=== PATIENT | female | born 1950 | race African-American/Black ===

== ENCOUNTER 2016-12-30 15:05 | Inpatient (IN) | payer MEDICARE, MEDICAID ==
[2016-12-30 16:32] LABS: Hematocrit 41 % (35-47); Hemoglobin 13.5 g/dl (12.0-16.0); Mean Corpuscular HGB Conc 33 g/dl (31-36); Mean Corpuscular Hemoglobin 29 pg (27-31); Mean Corpuscular Volume 87 fL (80-97); Mean Platelet Volume 8 um3 (7.4-10.4); Red Blood Count 4.71 10^6/ul (4.0-5.4); Red Cell Distribution Width 14 % (10.5-15); White Blood Count 11.6 10^3/ul (3.5-10.8)
[2016-12-30 16:51] LABS: ALT 10 U/L (7-52); AST 19 U/L (13-39); Albumin 4.6 g/dL (3.2-5.2); Alkaline Phosphatase 63 U/L (34-104); Anion Gap 10 mmol/L (2-11); BUN/Creatinine Ratio 22.8 (8-20); Blood Urea Nitrogen 18 mg/dL (6-24); CO2 Carbon Dioxide 26 mmol/L (22-32); Calcium 10.3 mg/dL (8.6-10.3); Chloride 104 mmol/L (101-111); EGFR African American 93.9 (>60); Globulin 3.1 g/dL (2-4); Glucose 94 mg/dL (70-100); Potassium 2.9 mmol/L (3.5-5.0); Sodium 140 mmol/L (133-145); Total Protein 7.7 g/dL (6.4-8.9)
[2016-12-30 17:20] LABS: Acetaminophen < 15 mcg/mL; Alcohol < 10 mg/dL (<10); Salicylate < 2.50 mg/dL (<30)
[2016-12-30 17:30] LABS: TSH (Thyroid Stimulating Horm) 0.24 mcIU/mL (0.34-5.60)
[2016-12-30 18:12] LABS: Urine Bacteria Absent (Absent); Urine Bilirubin Negative (Negative); Urine Glucose Negative (Negative); Urine Nitrite Negative (Negative)
[2016-12-30 18:37] LABS: Benzodiazepine Urine Screen Presumptive Positive (None Detect)
[2016-12-30] MEDS ORDERED: Sulfamethox/Trimethoprim DS 800/160* TAB PO ONE (22:11)
--- NOTE | 2016-12-30 22:13 | ED ---
Francine Aldana Anna, scribed for Ander Hudson MD on 12/30/16 at 1607 . Psychiatric Complaint - HPI Summary HPI Summary: Patient is a 66 y/o female BIBA to [facility] presenting with the sudden onset of intermittent auditory hallucinations that began today. She has OCD at baseline but is having acute symptoms today, different than baseline. In addition to the auditory hallucinations, she reports repeating herself and having memory difficulties. She denies visual hallucinations. She denies thoughts of hurting herself or others. Her history is significant for OCD and scoliosis. - History Of Current Complaint Chief Complaint: EDMentalHealth Time Seen by Provider: 12/30/16 15:28 Hx Obtained From: Patient Onset/Duration: Sudden Onset, Lasting Hours, Still Present - Allergies/Home Medications Allergies/Adverse Reactions: Allergies Allergy/AdvReac Type Severity Reaction Status Date / Time Aspirin AdvReac Nausea Verified 12/14/16 12:54 bee sting Allergy Airway Uncoded 07/09/16 13:26 Obstruction Home Medications: Home Medications Acetaminophen [Acetaminophen Extra Stren] 500 mg PO BID PRN 12/30/16 [History Confirmed 12/30/16] FLUoxetine CAP* [PROzac CAP*] 80 mg PO QAM 12/30/16 [History Confirmed 12/30/16] Levothyroxine TAB* [Synthroid TAB*] 50 mcg PO DAILY 12/30/16 [History Confirmed 12/30/16] Lisinopril TAB* [Prinivil TAB*] 10 mg PO QPM 12/30/16 [History Confirmed ] Lisinopril TAB* [Prinivil TAB*] 20 mg PO QAM 12/30/16 [History Confirmed ] Multivitamins/Minerals TAB* [Theragran/minerals TAB*] 1 tab PO DAILY 12/30/16 [ History Confirmed 12/30/16] Nabumetone TAB* [Relafen TAB*] 1,500 mg PO BID PRN 12/30/16 [History Confirmed 12/30/16] Oxycodone HCl [Oxycontin] 15 - 22.5 mg PO QID PRN MDD 90 mg 12/30/16 [History Confirmed 12/30/16] chlordiazePOXIDE CAP* [Librium CAP*] 10 mg PO TID MDD 30 mg 12/30/16 [History Confirmed 12/30/16] PMH/Surg Hx/FS Hx/Imm Hx Endocrine/Hematology History: Denies: Hx Anticoagulant Therapy, Hx Diabetes, Hx Thyroid Disease Cardiovascular History: Reports: Hx Hypercholesterolemia - HLD, Hx Hypertension Denies: Hx Congestive Heart Failure, Hx Pacemaker/ICD Respiratory History: Reports: Hx Asthma Denies: Hx Chronic Obstructive Pulmonary Disease (COPD) History: Denies: Hx Renal Disease Musculoskeletal History: Reports: Hx Arthritis, Hx Back Problems, Hx Congenital Bone Abnormalities, Hx Osteoporosis, Hx Scoliosis, Other Musculoskeletal History - OSTEOARTHRITIS,SCOLIOSIS Sensory History: Reports: Hx Contacts or Glasses Opthamlomology History: Reports: Hx Contacts or Glasses Neurological History: Reports: Other Neuro Impairments/Disorders - PAIN CLINIC PT Denies: Hx Dementia, Hx Seizures Psychiatric History: Reports: Hx Anxiety, Hx Depression, Hx Inpatient Treatment , Hx Community Mental Health Tx, Hx Suicide Attempt - SI/ATTEMPT HX, Other Psychiatric Issues/Disorders - OCD Denies: Hx Eating Disorder, Hx of Violent Episodes Against Others, Hx Substance Abuse - Cancer History Cancer Type, Location and Year: scoliosis, back pain - Surgical History Surgery Procedure, Year, and Place: bunionectomy, hammer toe - Immunization History Date of Tetanus Vaccine: unknown Infectious Disease History: No Infectious Disease History: Denies: Hx Hepatitis, Hx Human Immunodeficiency Virus (HIV), Traveled Outside the [place] in Last 30 Days - Family History Known Family History: Positive: Cardiac Disease, Diabetes, Other - Depression, EtOH abuse - Social History Alcohol Use: None Substance Use Type: Reports: None Substance Use Comment - Amount & Last Used: mSIR, oxycodone Smoking Status (MU): Former Smoker Type: Cigarettes Length of Time of Smoking/Using Tobacco: on and off since age 26 Have You Smoked in the Last Year: Yes Review of Systems Neurological: Other - "memory difficulties" Psychological: Other - auditory hallucinations, repeating herself All Other Systems Reviewed And Are Negative: Yes Physical Exam Triage Information Reviewed: Yes Vital Signs On Initial Exam: Initial Vitals Temp Pulse Resp BP Pulse Ox 98.0 F 82 16 144/97 100 12/30/16 15:05 12/30/16 15:05 12/30/16 15:05 12/30/16 15:05 12/30/16 15:05 Vital Signs Reviewed: Yes Appearance: Positive: Well-Appearing, No Pain Distress Skin: Positive: Warm, Skin Color Reflects Adequate Perfusion, Dry Head/Face: Positive: Normal Head/Face Inspection Eyes: Positive: EOMI, GIANFRANCO ENT: Positive: Normal ENT inspection Neck: Positive: Supple, Nontender Respiratory/Lung Sounds: Positive: Clear to Auscultation, Breath Sounds Present Cardiovascular: Positive: RRR Abdomen Description: Positive: Nontender, Soft Bowel Sounds: Positive: Present Musculoskeletal: Positive: Normal, Strength/ROM Intact Neurological: Positive: Normal, Sensory/Motor Intact, Alert, Oriented to Person Place, Time Psychiatric: Positive: Affect/Mood Appropriate Diagnostics - Vital Signs Vital Signs Temp Pulse Resp BP Pulse Ox 12/30/16 15:05 98.0 F 82 16 144/97 100 - Laboratory Lab Results: Lab Results 12/30/16 12/30/16 12/30/16 Range/Units 16:22 16:22 17:53 WBC 11.6 H (3.5-10.8) 10^3/ul RBC 4.71 (4.0-5.4) 10^6/ul Hgb 13.5 (12.0-16.0) g/dl Hct 41 (35-47) % MCV 87 (80-97) fL MCH 29 (27-31) pg MCHC 33 (31-36) g/dl RDW 14 (10.5-15) % Plt Count 230 (150-450) 10^3/ul MPV 8 (7.4-10.4) um3 Neut % (Auto) 70.7 (38-83) % Lymph % (Auto) 20.8 L (25-47) % Meeker % (Auto) 7.4 (1-9) % Eos % (Auto) 0.3 (0-6) % Baso % (Auto) 0.8 (0-2) % Absolute Neuts (auto) 8.2 H (1.5-7.7) 10^3/ul Absolute Lymphs (auto) 2.4 (1.0-4.8) 10^3/ul Absolute Monos (auto) 0.9 H (0-0.8) 10^3/ul Absolute Eos (auto) 0 (0-0.6) 10^3/ul Absolute Basos (auto) 0.1 (0-0.2) 10^3/ul Absolute Nucleated RBC 0.01 10^3/ul Nucleated RBC % 0.1 Sodium 140 (133-145) mmol/L Potassium 2.9 L (3.5-5.0) mmol/L Chloride 104 (101-111) mmol/L Carbon Dioxide 26 (22-32) mmol/L Anion Gap 10 (2-11) mmol/L BUN 18 (6-24) mg/dL Creatinine 0.79 (0.51-0.95) mg/dL Est GFR ( Amer) 93.9 (>60) Est GFR (Non-Af Amer) 73.0 (>60) BUN/Creatinine Ratio 22.8 H (8-20) Glucose 94 (70-100) mg/dL Calcium 10.3 (8.6-10.3) mg/dL Total Bilirubin 0.60 (0.2-1.0) mg/dL AST 19 (13-39) U/L ALT 10 (7-52) U/L Alkaline Phosphatase 63 (34-104) U/L Total Protein 7.7 (6.4-8.9) g/dL Albumin 4.6 (3.2-5.2) g/dL Globulin 3.1 (2-4) g/dL Albumin/Globulin Ratio 1.5 (1-3) TSH 0.24 L (0.34-5.60) mcIU/mL Urine Color Shell Urine Appearance Cloudy Urine pH 5.0 (5-9) Ur Specific Yolo 1.030 (1.010-1.030) Urine Protein 2+(100 mg/dl) H (Negative) Urine Ketones Trace H (Negative) Urine Blood Negative (Negative) Urine Nitrate Negative (Negative) Urine Bilirubin Negative (Negative) Urine Urobilinogen Negative (Negative) Ur Leukocyte Esterase Trace H (Negative) Urine WBC (Auto) 2+(11-20/hpf) H (Absent) Urine RBC (Auto) 1+(3-5/hpf) H (Absent) Ur Squamous Epith Cells Present H (Absent) Urine Bacteria Absent (Absent) Hyaline Casts Present H (Absent) Urine Glucose Negative (Negative) Salicylates < 2.50 (<30) mg/dL Urine Opiates Screen (None Detect) Acetaminophen < 15 mcg/mL Ur Barbiturates Screen (None Detect) Ur Phencyclidine Scrn (None Detect) Ur Amphetamines Screen (None Detect) U Benzodiazepines Scrn (None Detect) Urine Cocaine Screen (None Detect) U Cannabinoids Screen (None Detect) Serum Alcohol < 10 (<10) mg/dL 12/30/16 Range/Units 17:53 WBC (3.5-10.8) 10^3/ul RBC (4.0-5.4) 10^6/ul Hgb (12.0-16.0) g/dl Hct (35-47) % MCV (80-97) fL MCH (27-31) pg MCHC (31-36) g/dl RDW (10.5-15) % Plt Count (150-450) 10^3/ul MPV (7.4-10.4) um3 Neut % (Auto) (38-83) % Lymph % (Auto) (25-47) % Meeker % (Auto) (1-9) % Eos % (Auto) (0-6) % Baso % (Auto) (0-2) % Absolute Neuts (auto) (1.5-7.7) 10^3/ul Absolute Lymphs (auto) (1.0-4.8) 10^3/ul Absolute Monos (auto) (0-0.8) 10^3/ul Absolute Eos (auto) (0-0.6) 10^3/ul Absolute Basos (auto) (0-0.2) 10^3/ul Absolute Nucleated RBC 10^3/ul Nucleated RBC % Sodium (133-145) mmol/L Potassium (3.5-5.0) mmol/L Chloride (101-111) mmol/L Carbon Dioxide (22-32) mmol/L Anion Gap (2-11) mmol/L BUN (6-24) mg/dL Creatinine (0.51-0.95) mg/dL Est GFR ( Amer) (>60) Est GFR (Non-Af Amer) (>60) BUN/Creatinine Ratio (8-20) Glucose (70-100) mg/dL Calcium (8.6-10.3) mg/dL Total Bilirubin (0.2-1.0) mg/dL AST (13-39) U/L ALT (7-52) U/L Alkaline Phosphatase (34-104) U/L Total Protein (6.4-8.9) g/dL Albumin (3.2-5.2) g/dL Globulin (2-4) g/dL Albumin/Globulin Ratio (1-3) TSH (0.34-5.60) mcIU/mL Urine Color Urine Appearance Urine pH (5-9) Ur Specific Yolo (1.010-1.030) Urine Protein (Negative) Urine Ketones (Negative) Urine Blood (Negative) Urine Nitrate (Negative) Urine Bilirubin (Negative) Urine Urobilinogen (Negative) Ur Leukocyte Esterase (Negative) Urine WBC (Auto) (Absent) Urine RBC (Auto) (Absent) Ur Squamous Epith Cells (Absent) Urine Bacteria (Absent) Hyaline Casts (Absent) Urine Glucose (Negative) Salicylates (<30) mg/dL Urine Opiates Screen Presumptive positive H (None Detect) Acetaminophen mcg/mL Ur Barbiturates Screen None detected (None Detect) Ur Phencyclidine Scrn None detected (None Detect) Ur Amphetamines Screen None detected (None Detect) U Benzodiazepines Scrn Presumptive positive H (None Detect) Urine Cocaine Screen None detected (None Detect) U Cannabinoids Screen None detected (None Detect) Serum Alcohol (<10) mg/dL Result Diagrams: 12/30/16 16:22 12/30/16 16:22 Lab Statement: Any lab studies that have been ordered have been reviewed, and results considered in the medical decision making process. Course/Dx - Course Course Of Treatment: Pt is medically cleared for MHU Evaluation at 1740. NO CRITICAL CARE TIME Assessment/Plan: MHE PENDING AT SHIFT CHANGE, STABLE. - Differential Dx/Clinical Impression Provider Diagnosis: Mental health problem, UTI (urinary tract infection) Discharge - Discharge Plan Condition: Stable Disposition: PSYCHIATRIC FACILITY-[facility] [place] Referrals: Sheng Musa MD [Primary Care Provider] - The documentation as recorded by the Francine lopez Anna accurately reflects the service I personally performed and the decisions made by me, Ander Hudson MD.
[2016-12-30] MEDS ORDERED: Loperamide CAP* 2 MG PO ONE (23:32)
[2016-12-31] MEDS ORDERED: Morphine TAB Extended Release (*) 30 MG TAB.ER PO ONE ×2 (05:46→07:30)
[2016-12-31] MEDS ORDERED: Promethazine TAB* 25 MG PO ONE (05:47)
[2016-12-31] MEDS ORDERED: Levothyroxine TAB* 25 MCG TAB PO ONE (05:48)
[2016-12-31] MEDS ORDERED: FLUoxetine CAP* 20 MG PO ONE (05:48)
[2016-12-31] MEDS ORDERED: chlordiazePOXIDE CAP* 10 MG PO ONE (05:48)
[2016-12-31] MEDS ORDERED: busPIRone TAB* 5 MG PO ONE (05:49)
[2016-12-31] MEDS ORDERED: Docusate CAP* 100 MG PO ONE (05:49)
[2016-12-31] MEDS ORDERED: Lisinopril TAB* 10 MG PO ONE (05:50)
[2016-12-31] MEDS ORDERED: Nabumetone TAB* 500 MG PO ONE (05:50)
[2016-12-31] MEDS ORDERED: Promethazine TAB* 25 MG PO PRN (16:47)
[2016-12-31] MEDS: busPIRone TAB* 10 MG PO SCH (21:01)
[2016-12-31] MEDS: Nabumetone TAB* 500 MG PO PRN (21:01)
[2017-01-01] MEDS: Levothyroxine TAB* 50 MCG TAB PO SCH (08:59)
[2017-01-01] MEDS: Vitamin THERAPEUTIC TAB PO SCH (08:59)
[2017-01-01] MEDS: Lisinopril TAB* 10 MG PO SCH (09:00)
[2017-01-01] MEDS: busPIRone TAB* 10 MG PO SCH (09:00)
[2017-01-01] MEDS: Omeprazole CAP* 20 MG PO SCH (09:01)
[2017-01-01] MEDS: Docusate CAP* 100 MG PO SCH (09:01)
[2017-01-01] MEDS: FLUoxetine CAP* 20 MG PO SCH (09:01)
--- NOTE | 2017-01-01 15:25 | HP ---
AMENDED REPORT NOW INCLUDES CO-SIGNER DESIGNATION - ESIGNED BEFORE ADJUSTMENT INITIAL PSYCHIATRIC ASSESSMENT: DATE OF ADMISSION: 12/31/16 SUPERVISING/ATTENDING PSYCHIATRIST: Dr. Alon Redding.* (DICTATED BY YOHANA DURAN) IDENTIFYING INFORMATION: The patient is a 66-year-old female admitted to this facility on 12/31/16, admitting status was involuntary. The patient was seen and examined. The chart was reviewed and the case was discussed with clinical staff available at the time of the visit. CHIEF COMPLAINT/REASON FOR ADMISSION: The patient states "I am going to stay here until I ." HISTORY OF PRESENT ILLNESS: The patient was apparently brought in by ambulance to [facility] Emergency Department with a sudden onset of intermittent auditory hallucinations which apparently began on the . During today's clinical interview, the patient is informing me that she hears both male and female voices whom she believes are collectively part of a coven of witches to which she adds "they took my and now they want my son" at which point, she began to cry historically followed by laughter. When I attempted to explore the history of the onset of symptoms, she stated "it began rather quickly but I thought I was going to have to bring myself here last week. " She states that there is a wizard who has a perfect IQ and he is in charge of the coven of witches. She states "he has got a bag of tricks and he is going to use them." She then proceeded to tell me about her sister, who has multiple sclerosis, whom Minerva believes was given multiple sclerosis by this coven. At several points throughout the clinical interview, she would abruptly stop what she was saying, look at me, and state "do you really believe me?" The clinical interview was difficult to engage the patient with as she was highly distractible, again many of her answers centered on witchcraft and when I attempted to engage her in the review of systems, she simply kept stating "no , I don't have it now, but it is going to come." For a rather comprehensive review of this patient's past psychiatric history, I would direct to the reader to the history and physical documented on 04/22/[address] Efrain Garcia. PAST MEDICAL HISTORY: Includes scoliosis, hypercholesterolemia, hypertension, chronic back pain, obesity, and there is mention in the clinical record of a concussion at the age of 16. SUBSTANCE USE HISTORY: The patient is a former smoker, she did struggle with alcohol addiction many years ago; however, has been sober x26 years. She denies any other illicit substance use or abuse at this time. PAST PSYCHIATRIC HISTORY: When I attempted to ask the patient about past psychiatric history, she stated "they know it, they know it all." I am able to determine, however, from chart review that the patient was recently admitted here in April of 2016. She has also apparently been involved with Alcoholics Anonymous. She had apparently been in the past attending approximately 4 times a week. It is unclear at this point as to whether not she is still involved with AA. There is also mention in the clinical record of previous admission to [facility] in 1990 following drug overdose as well as admission to a dual diagnosis program in [place], [place]. REVIEW OF SYSTEMS: At this point, each systems that I had asked the patient about was one with the same answer which was "no, but it is going to come." Therefore, I am unable to accurately complete the review of systems at this time with this client. PHYSICAL EXAMINATION GENERAL APPEARANCE: The patient is well-developed, well-nourished, alert, and cooperative. She began crying several times during the clinical interview. HEENT: Head is normocephalic, atraumatic. NECK: Appears normal on inspection. RESPIRATORY: No respiratory distress. Lungs were clear. CARDIAC: Rate is 80. Blood pressure 144/92. ABDOMEN: Symmetrical without distention. MUSCULOSKELETAL: The patient does have scoliosis. She ambulates with the assistance of a walker and is noticed to be hunched in a forward position. NEUROLOGICAL: The patient is alert and oriented to person, place, and time. SKIN: Intact, warm, and dry. MENTAL STATUS EXAM: The patient appears older than her stated age with somewhat disheveled grooming noted. She is wearing brown what appeared to be sweat pants with an orange blouse. On gross examination, the patient's anterior scoliosis is quite apparent necessitating the use of a walker to navigate safely. Her attitude toward the examiner was quite pleasant and cooperative. She did not appear to be demonstrating any noteworthy mannerisms, gestures, or tics. Activity level was increased throughout the clinical interview as the patient got up from the rocking chair, leaned on the bureau in the comfort room, and then came and sat on the couch next to me. Her speech was verbose, somewhat goal-directed, spontaneous. Self- reported mood is "it comes and it goes." Affect is labile. Auditory hallucinations as described above. Paranoid and delusional thought processes were quite apparent as were impaired judgment and insight. Concentration and attention were also grossly impaired. The patient is denying suicidal ideation at this time. LABORATORY DATA: Review of laboratory data undertaken at this time, the following abnormals are noted: The white blood cell count was elevated at 11.6 , lymphocyte percentage is low at 20.8, absolute neutrophils are elevated at 8.2 , absolute monos are elevated at 0.9. Chemistry studies demonstrated a low potassium of 2.9, a BUN/creatinine ratio of 22.8, a TSH was 0.24. Her urine screen was positive for 2+ protein, trace ketones, trace leuko esterases, white blood cells were 2+, and urine red blood cells 1+, urine squamous epithelial cells were present as were hyaline casts. Urine toxicology was presumptively positive for opiates. CLINICAL IMPRESSION: The patient is a 66-year-old woman who is admitted under involuntary status secondary to new onset of psychotic symptoms. She is preoccupied religiously and is convinced that a coven of witches headed by a wizard are attempting to kill her. A UTI has been suspected and results for a urine C&S are currently pending. Her psychosis is such she is unable to care for herself safely in the community and has been admitted at this time for stabilization of symptoms. ADMITTING DIAGNOSES: 1. Psychosis, not otherwise specified. 2. History of atypical depression. 3. Histrionic personality disorder. 4. Hypercholesterolemia. 5. Hypertension. 6. Chronic pain. PLAN OF TREATMENT: Admit to Behavioral Services Unit. Diet will be regular. Activity as tolerated with restrictions to the unit. Vital signs per unit protocol. At this time, I will obtain lipid panel. At this time we will replace potasssium (40 meq orally q-4-hours/ x 2 doses) with repeat BMP in the am. The patient will participate in treatment planning activities, individual, group, and milieu therapy as well as medication management sessions and discharge planning until she is stable or referred to a higher level of care. TREATMENT GOAL: Stabilization. PROGNOSIS: Fair. ESTIMATED LENGTH OF STAY: 7 to 10 days. DISCHARGE CRITERIA: The patient will be discharged when she is no longer a risk to herself or others and has met the criteria set forth by the treatment team for discharge. The case was reviewed and discussed with Dr. Redding, who concurred with assessment, clinical impression, and initial plan of treatment. TARYN AVILA, COUNTERPERSON [id number]/[facility] #: [id number] KRISTEN
[2017-01-01] MEDS: busPIRone TAB* 15 MG PO SCH (21:45)
[2017-01-01] MEDS: Potassium Chlor TAB* 20 MEQ TAB.ER PO SCH (21:45)
[2017-01-02] MEDS: Potassium Chlor TAB* 20 MEQ TAB.ER PO SCH (02:20)
[2017-01-02] MEDS: Omeprazole CAP* 20 MG PO SCH (09:21)
[2017-01-02] MEDS: Lisinopril TAB* 10 MG PO SCH (09:21)
[2017-01-02] MEDS: FLUoxetine CAP* 20 MG PO SCH (09:21)
[2017-01-02] MEDS: busPIRone TAB* 15 MG PO SCH ×2 (09:21→20:00)
[2017-01-02] MEDS: Levothyroxine TAB* 50 MCG TAB PO SCH (09:21)
[2017-01-02] MEDS: Vitamin THERAPEUTIC TAB PO SCH (09:21)
[2017-01-02] MEDS: Docusate CAP* 100 MG PO SCH (09:23)
[2017-01-02] MEDS ORDERED: hydrOXYzine HCL TAB* 25 MG PO ONE (20:00)
[2017-01-03] MEDS: Levothyroxine TAB* 50 MCG TAB PO SCH (06:45)
[2017-01-03 07:36] LABS: HDL Cholesterol 47.4 mg/dL
[2017-01-03 07:39] LABS: Calcium 9.6 mg/dL (8.6-10.3); Potassium 3.6 mmol/L (3.5-5.0)
[2017-01-03] MEDS: Omeprazole CAP* 20 MG PO SCH (08:11)
[2017-01-03] MEDS: busPIRone TAB* 15 MG PO SCH ×2 (08:11→20:43)
[2017-01-03] MEDS: Vitamin THERAPEUTIC TAB PO SCH (08:12)
[2017-01-03] MEDS: FLUoxetine CAP* 20 MG PO SCH (08:12)
[2017-01-03] MEDS: Docusate CAP* 100 MG PO SCH (08:12)
[2017-01-03] MEDS: Lisinopril TAB* 10 MG PO SCH (08:12)
--- NOTE | 2017-01-03 12:26 | PN ---
Subjective - Subjective Service Type: 93580 Hosp care 25 min moderate complexity Subjective: Kirti has a hard time initiating an idea or following through on it. She endorses hallucination of a relative's voice and feels persecuted and as if her family is in danger. She affirmed she has no ideas of harming anyone. She reports being homeless and at the same time wants help "getting home."' I tried to review her prior antipsychotic treatment experiences, or get her input on selection, but she changed the subject. She did assent to Seroquel use. Objective - Appearance Appearance: Well Developed/Nourished Dysmorphic Features: No Hygiene: Normal Grooming: Fairly Well Kept - Behavior Psychomotor Activities: Abnormal-Decreased - stooped posture Exhibits Abnormal Movement: Yes - Attitude and Relatedness Attitude and Relatedness: Psychotically Related Eye Contact: Poor - Speech Quality: Unpressured Latencies: Long Quantity: Appropriate - Mood Patient's Decription of Mood: "Anxious" - Affect Observed Affect: Labile Affect Consistent with: Euthymia - Thought Process Patient's Thought Process: Disorganized, Impoverished - blocked Thought Content: Yes Paranoid Ideation, No Passive Wish, No Suicidal Planning, No Homicidal Ideation - Sensorium Experiencing Hallucinations: Yes - "Voice" of a relative Type of Hallucinations: Visual: No, Auditory: Yes, Command: No - Level of Consciousness Level of Consciousness: Alert - Impulse Control Impulse Control: Intact - Insight and Judgement Insight and Judgement: Impaired Assessment - Assessment Merits Inpatient Hospitalization: For Immediate Safety, For Stabilization, To Initiate Treatment, For Ongoing Evaluation, Pending Safe DC Plan Inpatient DSM-IV Dx: Psychotic disorder. PTSD Clinical Impression: 66 y/o female with history of multiple prior psychiatric hospitalizations, trauma, suicidal behavior, mood and anxiety condition, substance use disorder(s) , hystrionic traits/personality d/o, previous perceptual disturbances ("voices" ) and antipsychotic use. She was admitted due to concern over apparent impairing psychosis. She continues symptomatic and impaired with psychotic symptoms: thought disorder, hallucinations, delusions. She may also have dissociative features. She is safe on checks, free of suicidal or violent ideation. Medication management continues her outpatient regimen and starts Seroquel for psychosis. Plan - Plan Treatment Plan: Name: KIRTI JARA Birthdate: 1950 [id number] Continued Medication Management: Start Medication Medications: Current Medications Acetaminophen (Tylenol Tab*) 650 mg PO Q4H PRN PRN Reason: for pain; or Temp >101 F Al Hydrox/Mg Hydrox/Simethicone (Maalox Plus*) 30 ml PO Q4H PRN PRN Reason: INDIGESTION Buspirone HCl (Buspar Tab *) 30 mg PO BID [facility] Last Admin: 01/03/17 08:11 Dose: 30 mg Docusate Sodium (Colace Cap*) 100 mg PO DAILY [facility] Last Admin: 01/03/17 08:12 Dose: 100 mg Fluoxetine HCl (Prozac Cap*) 80 mg PO DAILY [facility] Last Admin: 01/03/17 08:12 Dose: 80 mg Levothyroxine Sodium (Synthroid Tab*) 50 mcg PO DAILY@0600 [facility] Last Admin: 01/03/17 06:45 Dose: 50 mcg Lisinopril (Prinivil Tab*) 20 mg PO DAILY [facility] Last Admin: 01/03/17 08:12 Dose: 20 mg Multivitamins (Theragran Tab*) 1 tab PO DAILY [facility] Last Admin: 01/03/17 08:12 Dose: 1 tab Nabumetone (Relafen Tab*) 1,500 mg PO BID PRN PRN Reason: PAIN Last Admin: 12/31/16 21:01 Dose: 1,500 mg Omeprazole (Prilosec Cap*) 20 mg PO 0600 [facility] Last Admin: 01/03/17 08:11 Dose: 20 mg Promethazine HCl (Phenergan Tab*) 25 mg PO Q8H PRN PRN Reason: NAUSEA - Discharge Plan Discharge Plan: Outpatient Follow Up
[2017-01-03] MEDS ORDERED: QUEtiapine TAB* 100 MG PO SCH (21:00)
[2017-01-04 09:10] LABS: BUN/Creatinine Ratio 13.9 (8-20); Calcium 9.4 mg/dL (8.6-10.3); EGFR African American 104.5 (>60); EGFR Non-African American 81.3 (>60); Potassium 3.2 mmol/L (3.5-5.0)
[2017-01-04] MEDS: Vitamin THERAPEUTIC TAB PO SCH (09:18)
[2017-01-04] MEDS: Omeprazole CAP* 20 MG PO SCH (09:18)
[2017-01-04] MEDS: busPIRone TAB* 15 MG PO SCH ×2 (09:18→20:54)
[2017-01-04] MEDS: FLUoxetine CAP* 20 MG PO SCH (09:18)
[2017-01-04] MEDS: Lisinopril TAB* 10 MG PO SCH (09:19)
[2017-01-04] MEDS: Docusate CAP* 100 MG PO SCH (09:22)
[2017-01-04] MEDS: Levothyroxine TAB* 50 MCG TAB PO SCH (09:22)
[2017-01-04 09:40] LABS: TSH (Thyroid Stimulating Horm) 0.35 mcIU/mL (0.34-5.60)
[2017-01-04 09:44] LABS: Free T3 3.2 pg/mL (2.5-3.9)
[2017-01-04 09:46] LABS: Free T4 1.27 ng/dL (0.61-1.12)
--- NOTE | 2017-01-04 15:43 | PN ---
Subjective - Subjective Service Type: 33854 Hosp care 25 min moderate complexity Subjective: Kirti reviewed with me her beliefs about being chosen by Greg to oppose inequity. She reports that she continues to struggle internally with the coven that she believes has already taken family members from her and is threatening her. Offered to her the possibility that these beliefs are internally generated by her own brain, to which she remains resistant. She agrees to take a more effective antipsychotic medication, olanzapine, but says she thinks the leader of the coven will 'freeze it.' She reports that she believes the coven is causing her scoliosis, enlarging her breasts to worsen it, and trying to shrink her. She reports that Greg will take her into heaven and make her an marleni when her contreras with the inequity of the coven is over. Objective - Appearance Appearance: Well Developed/Nourished Dysmorphic Features: Yes Hygiene: Normal Grooming: Disheveled - Behavior Psychomotor Activities: Normal Exhibits Abnormal Movement: No - Attitude and Relatedness Attitude and Relatedness: Cooperative Eye Contact: Poor - Speech Quality: Pressured Latencies: Normal Quantity: Copious - Mood Patient's Decription of Mood: "It's going to end with them" - Affect Observed Affect: Expansive Affect Consistent with: Dysphoria - Thought Process Patient's Thought Process: Disorganized, Tangential Thought Content: Yes Paranoid Ideation, No Passive Wish, No Suicidal Planning, No Homicidal Ideation - Sensorium Type of Hallucinations: Visual: Yes - reported as in her head, Auditory: Yes, Command: No - Level of Consciousness Level of Consciousness: Alert Orientation: Yes Intact, Yes Orientated to Time, Yes Orientated to Place, Yes Orientated to Person - Impulse Control Impulse Control: Intact - Insight and Judgement Insight and Judgement: Impaired - Group Participation Particating in Group Activities: No - Medication Management Medication Management Adherence: Yes Assessment - Assessment Merits Inpatient Hospitalization: For Immediate Safety, For Stabilization, For Ongoing Evaluation, For Discharge Planning, Pending Safe DC Plan Inpatient DSM-IV Dx: Psychotic disorder. PTSD Clinical Impression: Kirti Jara is a 66-year-old woman admitted for concern raised by florid psychosis with sabianist themes. 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 She had agreed to start Seroquel against psychosis, but with me agrees to Zyprexa, which has a higher likelihood of efficacy against psychosis. Plan - Plan Treatment Plan: Name: KIRTI JARA Birthdate: 1950 [id number] Replace Seroquel 100 mg HS with Zyprexa ODT 10 mg HS. Monitor MS and safety. Not yet ready for groups that require focus, but encourage milieu and recreation therapy. Refusing collateral from son, but will keep trying. Continued Medication Management: Different Medication Medications: Current Medications Acetaminophen (Tylenol Tab*) 650 mg PO Q4H PRN PRN Reason: for pain; or Temp >101 F Al Hydrox/Mg Hydrox/Simethicone (Maalox Plus*) 30 ml PO Q4H PRN PRN Reason: INDIGESTION Buspirone HCl (Buspar Tab *) 30 mg PO BID [facility] Last Admin: 01/04/17 09:18 Dose: 30 mg Docusate Sodium (Colace Cap*) 100 mg PO DAILY [facility] Last Admin: 01/04/17 09:22 Dose: 100 mg Fluoxetine HCl (Prozac Cap*) 80 mg PO DAILY [facility] Last Admin: 01/04/17 09:18 Dose: 80 mg Levothyroxine Sodium (Synthroid Tab*) 50 mcg PO DAILY@0600 [facility] Last Admin: 01/04/17 09:22 Dose: 50 mcg Lisinopril (Prinivil Tab*) 20 mg PO DAILY [facility] Last Admin: 01/04/17 09:19 Dose: 20 mg Multivitamins (Theragran Tab*) 1 tab PO DAILY [facility] Last Admin: 01/04/17 09:18 Dose: 1 tab Nabumetone (Relafen Tab*) 1,500 mg PO BID PRN PRN Reason: PAIN Last Admin: 12/31/16 21:01 Dose: 1,500 mg Omeprazole (Prilosec Cap*) 20 mg PO 0600 [facility] Last Admin: 01/04/17 09:18 Dose: 20 mg Promethazine HCl (Phenergan Tab*) 25 mg PO Q8H PRN PRN Reason: NAUSEA Last Admin: 01/03/17 20:45 Dose: 25 mg Quetiapine Fumarate (Seroquel Tab*) 100 mg PO BEDTIME [facility] Last Admin: 01/03/17 20:43 Dose: 100 mg - Discharge Plan Discharge Plan: Outpatient Follow Up
[2017-01-04] MEDS: OLANzapine TAB*ODT* 10 MG TAB PO SCH (20:54)
[2017-01-05] MEDS: Acetaminophen TAB* 325 MG PO PRN (01:14)
[2017-01-05] MEDS: Nabumetone TAB* 500 MG PO PRN ×2 (01:14→20:11)
[2017-01-05] MEDS: Levothyroxine TAB* 50 MCG TAB PO SCH (06:11)
[2017-01-05] MEDS: Omeprazole CAP* 20 MG PO SCH (06:11)
[2017-01-05] MEDS: Docusate CAP* 100 MG PO SCH (08:43)
[2017-01-05] MEDS: busPIRone TAB* 15 MG PO SCH ×2 (08:44→20:11)
[2017-01-05] MEDS: FLUoxetine CAP* 20 MG PO SCH (08:44)
[2017-01-05] MEDS: Lisinopril TAB* 10 MG PO SCH ×2 (08:45→18:13)
[2017-01-05] MEDS: Vitamin THERAPEUTIC TAB PO SCH (08:45)
--- NOTE | 2017-01-05 11:49 | PN ---
Subjective - Subjective Service Type: 75624 Hosp care 15 min low complexity Subjective: Kirti remains pleasantly psychotic today, with report of continued delusions as regard to jainism themes and a coven of witches. She reports very good mood attributed to her antipsychotic medication, which was changed to Zyprexa last evening. She reports some long-standing difficulties with urinary retention, but states she urinates at least twice daily. She says 'it's going to shut down totally,' similar to reports of other maladies due to the coven. She does complain of elevated BP readings, and has had systolic into the low 150 's over the past few days, but also normotensive readings. Per Ms Pizarro (for full details see her note): Pt reports continued paranoia that her accounts are frozen and refused to believe Ms Pizarro that per Willie they are not frozen. 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 * Pt believes that she is an alien who was sent here and that various higher lopez communicate with her * Pt voiced that she was told by Greg that she would be with her before the rapture came * Pt states that she was told by God to write a book and she hand wrote it and lost it * Pt says that she can't use electronics (tv, radio etc) in her apt because "they control them", gesturing to the sir around her head * Pt does not believe that her funds aren't frozen, nor does she think mortals can help solve the problem * Pt stated she "wishes I would already, I want to be with my ". Pt's son Willie says her current presentation is the worst he's ever seen from her. Williereported that her rent and housing are not an issue. Willie lives in [place], but has spoken to his mother on the phone and endorses concern about her ability to care for herself. He often pays out of pocket her expenses. Willie also endorsed that in the past when he has observed decompensation from pt she clears quickly with medication and is able to re-stabilize. Objective - Appearance Appearance: Well Developed/Nourished Dysmorphic Features: Yes Hygiene: Normal Grooming: Disheveled - Behavior Psychomotor Activities: Normal Exhibits Abnormal Movement: No - Attitude and Relatedness Attitude and Relatedness: Psychotically Related Eye Contact: Poor - Speech Quality: Unpressured Latencies: Normal Quantity: Appropriate - Mood Patient's Decription of Mood: "Very good." - Affect Observed Affect: Constricted Affect Consistent with: Euthymia - Thought Process Patient's Thought Process: Disorganized Thought Content: Yes Paranoid Ideation, No Passive Wish, No Suicidal Planning, No Homicidal Ideation - Sensorium Experiencing Hallucinations: Yes Type of Hallucinations: Visual: Yes, Auditory: Yes, Command: No - Level of Consciousness Level of Consciousness: Alert Orientation: Yes Intact, Yes Orientated to Time, Yes Orientated to Place, Yes Orientated to Person - Impulse Control Impulse Control: Intact - Insight and Judgement Insight and Judgement: Impaired - Group Participation Particating in Group Activities: No - Medication Management Medication Management Adherence: Yes Assessment - Assessment Merits Inpatient Hospitalization: For Immediate Safety, For Stabilization, For Discharge Planning, Pending Safe DC Plan Inpatient DSM-IV Dx: Psychotic disorder. PTSD Clinical Impression: Kirti Jraa is a 66-year-old woman admitted for concern raised by florid psychosis with jainism themes. 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 She had agreed to start Seroquel against psychosis, but with me agrees to Zyprexa, which has a higher likelihood of efficacy against psychosis. 5.3.17 Kirti reports some improvement with starting 10 mg Zyprexa, but with little change yet in delusions, paranoia and hallucinations versus confused imaginings. I spoke with Dr Hart about her BP readings and c/o urinary retention. I have ordered a bladder scan for post void residual. Dr Hart increased her lisinopril dose. Kirti remains too impaired to contemplate a safe discharge yet. Plan - Plan Treatment Plan: Name: KIRTI JARA Birthdate: 1950 [id number] Continue Zyprexa ODT 10 mg HS. Monitor MS and safety, also physical complaints re BP, urinary retention. Not yet ready for groups that require focus, but encourage milieu and recreation therapy. Has allowed collateral from son Sheng: Ms Pizarro's note from yesterday gives details. Medications: Current Medications Acetaminophen (Tylenol Tab*) 650 mg PO Q4H PRN PRN Reason: for pain; or Temp >101 F Last Admin: 01/05/17 01:14 Dose: 650 mg Al Hydrox/Mg Hydrox/Simethicone (Maalox Plus*) 30 ml PO Q4H PRN PRN Reason: INDIGESTION Buspirone HCl (Buspar Tab *) 30 mg PO BID [facility] Last Admin: 01/05/17 08:44 Dose: 30 mg Docusate Sodium (Colace Cap*) 100 mg PO DAILY [facility] Last Admin: 01/05/17 08:43 Dose: 100 mg Fluoxetine HCl (Prozac Cap*) 80 mg PO DAILY [facility] Last Admin: 01/05/17 08:44 Dose: 80 mg Levothyroxine Sodium (Synthroid Tab*) 50 mcg PO DAILY@0600 [facility] Last Admin: 01/05/17 06:11 Dose: 50 mcg Lisinopril (Prinivil Tab*) 20 mg PO DAILY [facility] Last Admin: 01/05/17 08:45 Dose: 20 mg Multivitamins (Theragran Tab*) 1 tab PO DAILY [facility] Last Admin: 01/05/17 08:45 Dose: 1 tab Nabumetone (Relafen Tab*) 1,500 mg PO BID PRN PRN Reason: PAIN Last Admin: 01/05/17 01:14 Dose: 1,500 mg Olanzapine (Zyprexa *Odt*) 10 mg PO BEDTIME [facility] Last Admin: 01/04/17 20:54 Dose: 10 mg Omeprazole (Prilosec Cap*) 20 mg PO 0600 [facility] Last Admin: 01/05/17 06:11 Dose: 20 mg Promethazine HCl (Phenergan Tab*) 25 mg PO Q8H PRN PRN Reason: NAUSEA Last Admin: 01/03/17 20:45 Dose: 25 mg - Discharge Plan Discharge Plan: Outpatient Follow Up
[2017-01-05] MEDS: OLANzapine TAB*ODT* 10 MG TAB PO SCH (20:12)
[2017-01-06] MEDS: Levothyroxine TAB* 50 MCG TAB PO SCH (06:10)
[2017-01-06] MEDS: Omeprazole CAP* 20 MG PO SCH (06:10)
[2017-01-06] MEDS: busPIRone TAB* 15 MG PO SCH ×2 (09:44→20:33)
[2017-01-06] MEDS: Vitamin THERAPEUTIC TAB PO SCH (09:44)
[2017-01-06] MEDS: Lisinopril TAB* 10 MG PO SCH ×2 (09:44→18:04)
[2017-01-06] MEDS: Docusate CAP* 100 MG PO SCH (09:44)
[2017-01-06] MEDS: FLUoxetine CAP* 20 MG PO SCH (09:44)
--- NOTE | 2017-01-06 13:31 | PN ---
[facility]: Group Therapy Note - Service Type Service Type: [id number] Group Psychotherapy - Cognitive Behavioral Group Therapy ( CBT):Patient presented in CBT programming as disorganized and disruptive in discussion and needed repeated redirection to attend to presented materials.
--- NOTE | 2017-01-06 15:34 | PN ---
Subjective - Subjective Service Type: 33201 Hosp care 15 min low complexity Subjective: Kirti had various comments centering around getting released - first demanding release, then "by Tuesday" then "at least by the end of the month!!!!" She endorsed anger at us, making persecutory statement to the effect that doctors, judges, and staff all profit from her excessive retention here. She denied major problems with Zyprexa, but could not stay focused on it long enough to really show she understood what she's taking it for. She repeatedly, vigorously, affirmed she is "not psychotic" but refused to answer questions as to previously endorsed delusions and hallucination saying: it's all happening, but I'm not talking about it!!" I set limits around her yelling across the table at me. When I informed her I thought she has made progress but still has symptoms she told me to "shut up" and walked off. Objective - Appearance Appearance: Well Developed/Nourished Hygiene: Normal Grooming: Disheveled - Behavior Psychomotor Activities: Abnormal-Increased - stooped posture Exhibits Abnormal Movement: Yes - Attitude and Relatedness Attitude and Relatedness: Hostile Eye Contact: Poor - Speech Quality: Pressured Latencies: Short Quantity: Appropriate - Mood Patient's Decription of Mood: "Angry" - Affect Observed Affect: Expansive Affect Consistent with: Dysphoria - Thought Process Patient's Thought Process: Disorganized Thought Content: Yes Paranoid Ideation, No Passive Wish, No Suicidal Planning, No Homicidal Ideation - Level of Consciousness Level of Consciousness: Agitated - Impulse Control Impulse Control: Tenuous - Insight and Judgement Insight and Judgement: Poor Assessment - Assessment Merits Inpatient Hospitalization: For Immediate Safety, For Stabilization, To Initiate Treatment, For Ongoing Evaluation, For Discharge Planning Inpatient DSM-IV Dx: Psychotic disorder. PTSD Clinical Impression: 66 y/o female with history of multiple prior psychiatric hospitalizations, trauma, suicidal behavior, mood and anxiety condition, substance use disorder(s) , hystrionic traits/personality d/o, previous perceptual disturbances ("voices" ) and antipsychotic use. She was admitted due to concern over apparent impairing psychosis. 1. Symptoms/behavior: Continues symptomatic and impaired with psychotic symptoms, off baseline: has thought disorder, responses to internal stimuli, recent hallucinations, delusional ideation. Is safe on checks, intrusive but not violent. She has some morbid thinking but is free of suicidal or violent ideation. 2. Medication management: continued her outpatient regimen and provides Zyprexa (2 doses so far) for psychosis. 3. Medical mgt.- hospitalist was informally consulted and assisted with Lisinopril dosing and mgt. of urinary retention. 4. Disposition - still impaired and unable to meet own needs outside the hospital. Plan - Plan Treatment Plan: Name: KIRTI JARA Birthdate: 1950 [id number] Continued Medication Management: Start Medication Medications: Current Medications Acetaminophen (Tylenol Tab*) 650 mg PO Q4H PRN PRN Reason: for pain; or Temp >101 F Last Admin: 01/05/17 01:14 Dose: 650 mg Al Hydrox/Mg Hydrox/Simethicone (Maalox Plus*) 30 ml PO Q4H PRN PRN Reason: INDIGESTION Buspirone HCl (Buspar Tab *) 30 mg PO BID [facility] Last Admin: 01/06/17 09:44 Dose: 30 mg Docusate Sodium (Colace Cap*) 100 mg PO DAILY [facility] Last Admin: 01/06/17 09:44 Dose: 100 mg Fluoxetine HCl (Prozac Cap*) 80 mg PO DAILY [facility] Last Admin: 01/06/17 09:44 Dose: 80 mg Levothyroxine Sodium (Synthroid Tab*) 50 mcg PO DAILY@0600 [facility] Last Admin: 01/06/17 06:10 Dose: 50 mcg Lisinopril (Prinivil Tab*) 20 mg PO DAILY [facility] Last Admin: 01/06/17 09:44 Dose: 20 mg Lisinopril (Prinivil Tab*) 10 mg PO QPM [facility] Last Admin: 01/05/17 18:13 Dose: 10 mg Multivitamins (Theragran Tab*) 1 tab PO DAILY [facility] Last Admin: 01/06/17 09:44 Dose: 1 tab Nabumetone (Relafen Tab*) 1,500 mg PO BID PRN PRN Reason: PAIN Last Admin: 01/05/17 20:11 Dose: 1,500 mg Olanzapine (Zyprexa *Odt*) 10 mg PO BEDTIME [facility] Last Admin: 01/05/17 20:12 Dose: 10 mg Omeprazole (Prilosec Cap*) 20 mg PO 0600 [facility] Last Admin: 01/06/17 06:10 Dose: 20 mg Promethazine HCl (Phenergan Tab*) 25 mg PO Q8H PRN PRN Reason: NAUSEA Last Admin: 01/03/17 20:45 Dose: 25 mg - Discharge Plan Discharge Plan: Outpatient Follow Up
[2017-01-06] MEDS: OLANzapine TAB*ODT* 10 MG TAB PO SCH (20:34)
[2017-01-07] MEDS: Levothyroxine TAB* 50 MCG TAB PO SCH (06:53)
[2017-01-07] MEDS: Omeprazole CAP* 20 MG PO SCH (06:53)
[2017-01-07] MEDS: busPIRone TAB* 15 MG PO SCH ×2 (08:09→20:16)
[2017-01-07] MEDS: Docusate CAP* 100 MG PO SCH (08:09)
[2017-01-07] MEDS: Lisinopril TAB* 10 MG PO SCH ×2 (08:09→20:16)
[2017-01-07] MEDS: Vitamin THERAPEUTIC TAB PO SCH (08:10)
[2017-01-07] MEDS: FLUoxetine CAP* 20 MG PO SCH (08:10)
--- NOTE | 2017-01-07 14:03 | PN ---
Subjective - Subjective Service Type: 50884 Hosp care 15 min low complexity Subjective: Kirti forgave herself for being "wired" yesterday. She was working on the Bible, taking notes. She talked about multiple things, hard to follow, including having "$800" for something. She asked for more medicine "to help with sleep" - I let her know Zyprexa probably would, and she was happy for an increase. Objective - Appearance Appearance: Well Developed/Nourished Hygiene: Normal Grooming: Fairly Well Kept - Behavior Psychomotor Activities: Abnormal-Increased - Attitude and Relatedness Attitude and Relatedness: Psychotically Related Eye Contact: Good - Speech Quality: Pressured Latencies: Short Quantity: Appropriate - Mood Patient's Decription of Mood: "Great" - Affect Observed Affect: Expansive Affect Consistent with: Euthymia - Thought Process Patient's Thought Process: Disorganized Thought Content: No Passive Wish, No Suicidal Planning, No Homicidal Ideation, No Paranoid Ideation - Sensorium Experiencing Hallucinations: No, Sensorium is Clear - Level of Consciousness Level of Consciousness: Alert - Impulse Control Impulse Control: Intact - Insight and Judgement Insight and Judgement: Poor Assessment - Assessment Merits Inpatient Hospitalization: For Immediate Safety, For Stabilization, To Initiate Treatment, For Ongoing Evaluation Inpatient DSM-IV Dx: Psychotic disorder. PTSD Clinical Impression: 66 y/o female with history of multiple prior psychiatric hospitalizations, trauma, suicidal behavior, mood and anxiety condition, substance use disorder(s) , hystrionic traits/personality d/o, previous perceptual disturbances ("voices" ) and antipsychotic use. She was admitted due to concern over apparent impairing psychosis. 1. Symptoms/behavior: Continues symptomatic and impaired with psychotic symptoms, off baseline: has thought disorder, recent responses to internal stimuli and hallucinations, delusional ideation. Has manic affective features - religiosity, note-taking, pressure, little sleep. Is safe on checks, intrusive but not violent. She has some morbid thinking but is free of suicidal or violent ideation. 2. Medication management: continued her outpatient regimen and provides Zyprexa for psychosis, mood. 3. Medical mgt.- hospitalist was informally consulted and assisted with Lisinopril dosing and mgt. of urinary retention - recommended a post void scan which showed very low residual (reassuring) - I discussed case with Dr. Marroquin : recommends routinely following up TSH next week, no intervention for bladder - and he adjusted antihypertensive. 4. Disposition - still impaired and unable to meet own needs outside the hospital. Plan - Plan Treatment Plan: Name: KIRTI JARA Birthdate: 1950 [id number] Continued Medication Management: Start Medication Medications: Current Medications Acetaminophen (Tylenol Tab*) 650 mg PO Q4H PRN PRN Reason: for pain; or Temp >101 F Last Admin: 01/05/17 01:14 Dose: 650 mg Al Hydrox/Mg Hydrox/Simethicone (Maalox Plus*) 30 ml PO Q4H PRN PRN Reason: INDIGESTION Buspirone HCl (Buspar Tab *) 30 mg PO BID [facility] Last Admin: 01/07/17 08:09 Dose: 30 mg Docusate Sodium (Colace Cap*) 100 mg PO DAILY [facility] Last Admin: 01/07/17 08:09 Dose: 100 mg Fluoxetine HCl (Prozac Cap*) 80 mg PO DAILY [facility] Last Admin: 01/07/17 08:10 Dose: 80 mg Levothyroxine Sodium (Synthroid Tab*) 50 mcg PO DAILY@0600 [facility] Last Admin: 01/07/17 06:53 Dose: 50 mcg Lisinopril (Prinivil Tab*) 20 mg PO DAILY [facility] Last Admin: 01/07/17 08:09 Dose: 20 mg Lisinopril (Prinivil Tab*) 10 mg PO QPM [facility] Last Admin: 01/06/17 18:04 Dose: 10 mg Multivitamins (Theragran Tab*) 1 tab PO DAILY [facility] Last Admin: 01/07/17 08:10 Dose: 1 tab Nabumetone (Relafen Tab*) 1,000 mg PO BID PRN PRN Reason: PAIN Olanzapine (Zyprexa *Odt*) 10 mg PO BEDTIME [facility] Last Admin: 01/06/17 20:34 Dose: 10 mg Omeprazole (Prilosec Cap*) 20 mg PO 0600 [facility] Last Admin: 01/07/17 06:53 Dose: 20 mg Promethazine HCl (Phenergan Tab*) 25 mg PO Q8H PRN PRN Reason: NAUSEA Last Admin: 01/03/17 20:45 Dose: 25 mg - Discharge Plan Discharge Plan: Outpatient Follow Up
[2017-01-07 14:34] LABS: Urine Bacteria Absent (Absent); Urine Bilirubin Negative (Negative); Urine Glucose Negative (Negative); Urine Nitrite Negative (Negative)
[2017-01-07] MEDS: Al Hydrox/Mg Hydrox/Simet LIQ* 30 ML UDC PO PRN (20:16)
[2017-01-07] MEDS: OLANzapine TAB*ODT* 5 MG PO SCH (20:16)
[2017-01-07] MEDS: Acetaminophen TAB* 325 MG PO PRN (21:35)
[2017-01-08] MEDS: Nabumetone TAB* 500 MG PO PRN (01:45)
[2017-01-08] MEDS: Omeprazole CAP* 20 MG PO SCH (06:00)
[2017-01-08] MEDS: Levothyroxine TAB* 50 MCG TAB PO SCH (06:00)
[2017-01-08] MEDS: Docusate CAP* 100 MG PO SCH (09:20)
[2017-01-08] MEDS: Lisinopril TAB* 10 MG PO SCH ×2 (09:20→21:25)
[2017-01-08] MEDS: FLUoxetine CAP* 20 MG PO SCH (09:21)
[2017-01-08] MEDS: Vitamin THERAPEUTIC TAB PO SCH (09:21)
[2017-01-08] MEDS: busPIRone TAB* 15 MG PO SCH ×2 (09:21→21:25)
[2017-01-08] MEDS: Acetaminophen TAB* 325 MG PO PRN (09:28)
[2017-01-08] MEDS: OLANzapine TAB*ODT* 5 MG PO SCH (21:25)
[2017-01-08] MEDS: Al Hydrox/Mg Hydrox/Simet LIQ* 30 ML UDC PO PRN (23:42)
[2017-01-09] MEDS: Levothyroxine TAB* 50 MCG TAB PO SCH (06:28)
[2017-01-09] MEDS: Omeprazole CAP* 20 MG PO SCH (06:28)
[2017-01-09] MEDS: Lisinopril TAB* 10 MG PO SCH ×2 (08:50→20:52)
[2017-01-09] MEDS: Vitamin THERAPEUTIC TAB PO SCH (08:50)
[2017-01-09] MEDS: FLUoxetine CAP* 20 MG PO SCH (08:50)
[2017-01-09] MEDS: Docusate CAP* 100 MG PO SCH (08:51)
[2017-01-09] MEDS: busPIRone TAB* 15 MG PO SCH ×2 (08:51→20:52)
[2017-01-09] MEDS: Acetaminophen TAB* 325 MG PO PRN ×2 (08:54→12:55)
[2017-01-09] MEDS: Al Hydrox/Mg Hydrox/Simet LIQ* 30 ML UDC PO PRN (16:12)
[2017-01-09] MEDS: OLANzapine TAB*ODT* 5 MG PO SCH (20:52)
[2017-01-10] MEDS: Levothyroxine TAB* 50 MCG TAB PO SCH (06:14)
[2017-01-10] MEDS: Omeprazole CAP* 20 MG PO SCH (06:14)
[2017-01-10] MEDS: FLUoxetine CAP* 20 MG PO SCH (07:51)
[2017-01-10] MEDS: Docusate CAP* 100 MG PO SCH (07:52)
[2017-01-10] MEDS: Lisinopril TAB* 10 MG PO SCH ×2 (07:52→20:37)
[2017-01-10] MEDS: busPIRone TAB* 15 MG PO SCH ×2 (07:52→20:33)
[2017-01-10] MEDS: Vitamin THERAPEUTIC TAB PO SCH (07:52)
--- NOTE | 2017-01-10 11:59 | PN ---
Subjective - Subjective Service Type: 39680 Hosp care 15 min low complexity Subjective: Kirti says she is doing "great" - really likes Zyprexa and denies side effects. She said she had a sudden realization this weekend that she needed to be hospitalized and "it was a long time coming." She remains focused on discharge and denied symptoms of concern, but did reasonable accept tentative idea of staying her about 4 more days. She denied hallucinations, made no delusional comments, and denied paranoid ideas, persecution. Objective - Appearance Appearance: Well Developed/Nourished Hygiene: Normal Grooming: Fairly Well Kept - Behavior Psychomotor Activities: Abnormal-Increased - Attitude and Relatedness Attitude and Relatedness: Superficially Cooperative Eye Contact: Good - Speech Quality: Unpressured Latencies: Short Quantity: Appropriate - Mood Patient's Decription of Mood: "Great" - Affect Observed Affect: Expansive Affect Consistent with: Euphoria - Thought Process Patient's Thought Process: Over Inclusive Thought Content: No Passive Wish, No Suicidal Planning, No Homicidal Ideation, No Paranoid Ideation - Sensorium Experiencing Hallucinations: No, Sensorium is Clear - Level of Consciousness Level of Consciousness: Alert - Impulse Control Impulse Control: Intact - Insight and Judgement Insight and Judgement: Poor Assessment - Assessment Merits Inpatient Hospitalization: For Stabilization, To Initiate Treatment, For Ongoing Evaluation, Consolidate Improvements, For Discharge Planning Inpatient DSM-IV Dx: Psychotic disorder. PTSD Clinical Impression: 66 y/o female with history of multiple prior psychiatric hospitalizations, trauma, suicidal behavior, mood and anxiety condition, substance use disorder(s) , hystrionic traits/personality d/o, previous perceptual disturbances ("voices" ) and antipsychotic use. She was admitted due to concern over apparent impairing psychosis. Stabilizing here, overall improving. 1. Symptoms/behavior: Is improving. Has had correction of psychotic symptoms. Concern centered on thought disorder, responses to internal stimuli and hallucinations, delusional ideation. She has milder manic affective features - religiosity, note-taking, pressure, little sleep. She is safe on checks. She had some morbid thinking but has been free of suicidal or violent ideation. 2. Medication management: continued her outpatient regimen and provided Zyprexa for psychosis, mood. 3. Medical mgt.- hospitalist was informally consulted and assisted with Lisinopril dosing and mgt. of urinary retention - recommended a post void scan which showed very low residual (reassuring) - I discussed case with Dr. Marroquin : recommends routinely following up TSH week of 01/10, no intervention for bladder - and he adjusted antihypertensive. 4. Disposition - improving but still impaired and unable to meet own needs outside the hospital. Plan - Plan Treatment Plan: Name: KIRTI JARA Birthdate: 1950 [id number] Continued Medication Management: Start Medication Medications: Current Medications Acetaminophen (Tylenol Tab*) 650 mg PO Q4H PRN PRN Reason: for pain; or Temp >101 F Last Admin: 01/09/17 12:55 Dose: 650 mg Al Hydrox/Mg Hydrox/Simethicone (Maalox Plus*) 30 ml PO Q4H PRN PRN Reason: INDIGESTION Last Admin: 01/09/17 16:12 Dose: 30 ml Buspirone HCl (Buspar Tab *) 30 mg PO BID [facility] Last Admin: 01/10/17 07:52 Dose: 30 mg Docusate Sodium (Colace Cap*) 100 mg PO DAILY [facility] Last Admin: 01/10/17 07:52 Dose: 100 mg Fluoxetine HCl (Prozac Cap*) 80 mg PO DAILY [facility] Last Admin: 01/10/17 07:51 Dose: 80 mg Levothyroxine Sodium (Synthroid Tab*) 50 mcg PO DAILY@0600 [facility] Last Admin: 01/10/17 06:14 Dose: 50 mcg Lisinopril (Prinivil Tab*) 20 mg PO BID [facility] Last Admin: 01/10/17 07:52 Dose: 20 mg Multivitamins (Theragran Tab*) 1 tab PO DAILY [facility] Last Admin: 01/10/17 07:52 Dose: 1 tab Nabumetone (Relafen Tab*) 1,000 mg PO BID PRN PRN Reason: PAIN Last Admin: 01/08/17 01:45 Dose: 1,000 mg Olanzapine (Zyprexa * Tab Odt) 15 mg PO BEDTIME [facility] Last Admin: 01/09/17 20:52 Dose: 15 mg Omeprazole (Prilosec Cap*) 20 mg PO 0600 [facility] Last Admin: 01/10/17 06:14 Dose: 20 mg Promethazine HCl (Phenergan Tab*) 25 mg PO Q8H PRN PRN Reason: NAUSEA Last Admin: 01/03/17 20:45 Dose: 25 mg - Discharge Plan Discharge Plan: Outpatient Follow Up
[2017-01-10] MEDS: OLANzapine TAB*ODT* 5 MG PO SCH (20:37)
[2017-01-11] MEDS: Levothyroxine TAB* 50 MCG TAB PO SCH (05:43)
[2017-01-11] MEDS: Omeprazole CAP* 20 MG PO SCH (05:43)
[2017-01-11] MEDS: FLUoxetine CAP* 20 MG PO SCH (08:33)
[2017-01-11] MEDS: Docusate CAP* 100 MG PO SCH (08:33)
[2017-01-11] MEDS: Lisinopril TAB* 10 MG PO SCH ×2 (08:33→21:10)
[2017-01-11] MEDS: Vitamin THERAPEUTIC TAB PO SCH (08:34)
[2017-01-11] MEDS: busPIRone TAB* 15 MG PO SCH ×2 (08:34→21:10)
--- NOTE | 2017-01-11 17:10 | PN ---
Progress Note - Progress Note Note: RN called that pt's SBP's had been elevated. Pt had been asymptomatic otherwise. Will add Norvasc 5 mg to pt's medications and continue Lisinopril
[2017-01-11] MEDS: amLODIPine TAB* 5 MG PO SCH (18:29)
[2017-01-11] MEDS: OLANzapine TAB*ODT* 5 MG PO SCH (21:10)
[2017-01-12] MEDS: Levothyroxine TAB* 50 MCG TAB PO SCH (05:41)
[2017-01-12] MEDS: Omeprazole CAP* 20 MG PO SCH (05:41)
[2017-01-12] MEDS: Acetaminophen TAB* 325 MG PO PRN ×2 (07:31→21:38)
[2017-01-12] MEDS: Vitamin THERAPEUTIC TAB PO SCH (08:43)
[2017-01-12] MEDS: amLODIPine TAB* 5 MG PO SCH (08:43)
[2017-01-12] MEDS: Lisinopril TAB* 10 MG PO SCH ×2 (08:43→20:52)
[2017-01-12] MEDS: busPIRone TAB* 15 MG PO SCH ×2 (08:43→20:52)
[2017-01-12] MEDS: Docusate CAP* 100 MG PO SCH (08:44)
[2017-01-12] MEDS: FLUoxetine CAP* 20 MG PO SCH (08:44)
--- NOTE | 2017-01-12 16:36 | PN ---
Subjective - Subjective Service Type: 61273 Hosp care 15 min low complexity Subjective: Kirti reports sustained remission of delusional thoughts or hallucinations. She says she feels she will be ready for discharge Tuesday. She is concerned that she opened up to a patient here who has been manic and intrusive. She reports that her mind has been very active at night around things she has to get in order at home, so she feels physically but not mentally rested from sleep. Objective - Appearance Appearance: Well Developed/Nourished Dysmorphic Features: Yes Hygiene: Normal Grooming: Well Kept - Behavior Psychomotor Activities: Normal Exhibits Abnormal Movement: No - Attitude and Relatedness Attitude and Relatedness: Well Related Eye Contact: Good - Speech Quality: Unpressured Latencies: Normal Quantity: Appropriate - Mood Patient's Decription of Mood: "I'm happy" - Affect Observed Affect: Good Affect Consistent with: Euthymia - Thought Process Patient's Thought Process: Coherent, Goal Directed Thought Content: No Passive Wish, No Suicidal Planning, No Homicidal Ideation, No Paranoid Ideation - Sensorium Experiencing Hallucinations: No, Sensorium is Clear Type of Hallucinations: Visual: No, Auditory: No, Command: No - Level of Consciousness Level of Consciousness: Alert Orientation: Yes Intact, Yes Orientated to Time, Yes Orientated to Place, Yes Orientated to Person - Impulse Control Impulse Control: Intact - Insight and Judgement Insight and Judgement: Fair - Group Participation Particating in Group Activities: Yes - Medication Management Medication Management Adherence: Yes Assessment - Assessment Merits Inpatient Hospitalization: For Stabilization, Consolidate Improvements, For Discharge Planning Inpatient DSM-IV Dx: Psychotic disorder. PTSD Clinical Impression: Kirti Jara is a 66-year-old woman admitted for concern raised by florid psychosis with rastafari themes. 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 She had agreed to start Seroquel against psychosis, but with me agrees to Zyprexa, which has a higher likelihood of efficacy against psychosis. 5.3.17 Kirti reports some improvement with starting 10 mg Zyprexa, but with little change yet in delusions, paranoia and hallucinations versus confused imaginings. I spoke with Dr Hart about her BP readings and c/o urinary retention. I have ordered a bladder scan for post void residual. Dr Hart increased her lisinopril dose. Kirti remains too impaired to contemplate a safe discharge yet. 01.12.17 Kirti reports sustained remission of psychosis. She continues to have elevated BP into the 160s/90s range: Dr Hart added Norvasc 5 mg daily to her lisinopril. She says she feels she will be ready for discharge on Tuesday. Plan - Plan Treatment Plan: Name: KIRTI JARA Birthdate: 1950 [id number] Continue Zyprexa ODT 15 mg HS. Monitor MS and safety, also BP. Not yet ready for groups that require focus, but encourage milieu and recreation therapy. Possible discharge in next few days. Medications: Current Medications Acetaminophen (Tylenol Tab*) 650 mg PO Q4H PRN PRN Reason: for pain; or Temp >101 F Last Admin: 01/12/17 07:31 Dose: 650 mg Al Hydrox/Mg Hydrox/Simethicone (Maalox Plus*) 30 ml PO Q4H PRN PRN Reason: INDIGESTION Last Admin: 01/09/17 16:12 Dose: 30 ml Amlodipine Besylate (Norvasc Tab*) 5 mg PO DAILY [facility] Last Admin: 01/12/17 08:43 Dose: 5 mg Buspirone HCl (Buspar Tab *) 30 mg PO BID [facility] Last Admin: 01/12/17 08:43 Dose: 30 mg Docusate Sodium (Colace Cap*) 100 mg PO DAILY [facility] Last Admin: 01/12/17 08:44 Dose: 100 mg Fluoxetine HCl (Prozac Cap*) 80 mg PO DAILY [facility] Last Admin: 01/12/17 08:44 Dose: 80 mg Levothyroxine Sodium (Synthroid Tab*) 50 mcg PO DAILY@0600 [facility] Last Admin: 01/12/17 05:41 Dose: 50 mcg Lisinopril (Prinivil Tab*) 20 mg PO BID [facility] Last Admin: 01/12/17 08:43 Dose: 20 mg Multivitamins (Theragran Tab*) 1 tab PO DAILY [facility] Last Admin: 01/12/17 08:43 Dose: 1 tab Nabumetone (Relafen Tab*) 1,000 mg PO BID PRN PRN Reason: PAIN Last Admin: 01/08/17 01:45 Dose: 1,000 mg Olanzapine (Zyprexa * Tab Odt) 15 mg PO BEDTIME [facility] Last Admin: 01/11/17 21:10 Dose: 15 mg Omeprazole (Prilosec Cap*) 20 mg PO 0600 [facility] Last Admin: 01/12/17 05:41 Dose: 20 mg Promethazine HCl (Phenergan Tab*) 25 mg PO Q8H PRN PRN Reason: NAUSEA Last Admin: 01/03/17 20:45 Dose: 25 mg - Discharge Plan Discharge Plan: Outpatient Follow Up
[2017-01-12] MEDS: OLANzapine TAB*ODT* 5 MG PO SCH (20:52)
[2017-01-13] MEDS: Omeprazole CAP* 20 MG PO SCH (05:40)
[2017-01-13] MEDS: Levothyroxine TAB* 50 MCG TAB PO SCH (05:40)
[2017-01-13] MEDS: Nabumetone TAB* 500 MG PO PRN (08:51)
[2017-01-13] MEDS: FLUoxetine CAP* 20 MG PO SCH (08:52)
[2017-01-13] MEDS: Vitamin THERAPEUTIC TAB PO SCH (08:52)
[2017-01-13] MEDS: Docusate CAP* 100 MG PO SCH (08:52)
[2017-01-13] MEDS: Lisinopril TAB* 10 MG PO SCH (08:53)
[2017-01-13] MEDS: amLODIPine TAB* 5 MG PO SCH (08:53)
[2017-01-13] MEDS: busPIRone TAB* 15 MG PO SCH (08:53)
[2017-01-13 09:01] LABS: TSH (Thyroid Stimulating Horm) 0.38 mcIU/mL (0.34-5.60)
[2017-01-13 09:10] LABS: Free T4 1.02 ng/dL (0.61-1.12)
[2017-01-13 09:36] VITALS: BP 159/103
--- NOTE | 2017-01-13 10:45 | DS ---
Subjective - Subjective Service Types: [id number] Hosp [place] Day Mgmt simple under 30 min Discharge Date: 01/13/17 Subjective: Minerva was cheerful, denied distress, and had no clinical concerns. She denied hallucinations, persecutory concerns; and made no delusional comments. She affirmed she is safe and feels good about being alive. She said she is pleased with Zyprexa, and happy to continue it - we reviewed plan for its use. She said she sees no barriers to support, routine care, or emergency care again if needed. Objective - Appearance Appearance: Well Developed/Nourished Hygiene: Normal Grooming: Fairly Well Kept - Behavior Psychomotor Activities: Normal - Attitude and Relatedness Attitude and Relatedness: Cooperative Eye Contact: Good - Speech Quality: Unpressured Latencies: Normal Quantity: Appropriate - Mood Patient's Decription of Mood: "Good" - Affect Observed Affect: Labile Affect Consistent with: Euthymia - Thought Process Patient's Thought Process: Coherent, Impoverished Thought Content: No Passive Wish, No Suicidal Planning, No Homicidal Ideation, No Paranoid Ideation - Sensorium Experiencing Hallucinations: No, Sensorium is Clear - Level of Consciousness Level of Consciousness: Alert - Impulse Control Impulse Control: Intact - Insight and Judgement Insight and Judgement: Fair Treatment Course & Assessment Clinical Course & Impression: 66 y/o female with history of multiple prior psychiatric hospitalizations, trauma, suicidal behavior, mood and anxiety condition, substance use disorder(s) , hystrionic traits/personality d/o, previous perceptual disturbances ("voices" ) and antipsychotic use. She was admitted due to concern over apparent impairing psychosis. 01/13/17 Clear for release. Minerva stabilized here, and had major clinical improvement. 1. Symptoms/behavior: Acute impairment is resolved. Symptoms are dramatically reduced. She had full correction of psychotic symptoms. Concern initially centered on thought disorder, responses to internal stimuli and hallucinations, delusional ideation. She has also had progressively milder manic affective features - religiosity, note-taking, pressure, little sleep. At this time symptoms are mild. Behaviorally she was safe on checks. She had some morbid thinking but has been free of suicidal or violent ideation. 2. Medication management: continued her outpatient regimen (except for controlled drugs with high risk of abuse and adverse effects) and provided Zyprexa for psychosis, mood. 3. Medical mgt.- hospitalist was informally consulted and assisted with Lisinopril dosing and mgt. of urinary retention - recommended a post void scan which showed very low residual (reassuring) - I discussed case with Dr. Marroquin (he recommended followup Thyroid tests which were reassuringly normal) and I spoke with Dr. Hart 01/13 (agreed on discharge antihypertensives - she said pt. is clear for release and outpatient followup. 4. Disposition - improved and can be treated in less restrictive setting. Risk concern centered on Minerva's level of impairment, making her unable to meet own basic needs. This is corrected. Suicide risk is chronically elevated in a patient with Minerva's history and conditions. At this time it is assessed as low acutely based on her benign ideation and behavior, low symptom burden, and absence of other impairing factors. Clear for Discharge: Adequate Clinical Respons, Acceptable Safety Profile, Low Utility of In Care Inpatient DSM-IV Dx: Psychotic disorder. PTSD. OCD by history Discharge Planning - Discharge Planning Discharge Plan: Outpatient Follow Up Outpatient Program: [facility] Recommendations for Continuing Care: Medication Management, Psychotherapy, Primary Care Followup Medications: Current Medications Amlodipine Besylate (Norvasc Tab*) 5 mg PO DAILY [facility] Last Admin: 01/13/17 08:53 Dose: 5 mg Buspirone HCl (Buspar Tab *) 30 mg PO BID [facility] Last Admin: 01/13/17 08:53 Dose: 30 mg Docusate Sodium (Colace Cap*) 100 mg PO DAILY [facility] Last Admin: 01/13/17 08:52 Dose: 100 mg Fluoxetine HCl (Prozac Cap*) 80 mg PO DAILY [facility] Last Admin: 01/13/17 08:52 Dose: 80 mg Levothyroxine Sodium (Synthroid Tab*) 50 mcg PO DAILY@0600 [facility] Last Admin: 01/13/17 05:40 Dose: 50 mcg Lisinopril (Prinivil Tab*) 20 mg PO BID [facility] Last Admin: 01/13/17 08:53 Dose: 20 mg Nabumetone (Relafen Tab*) 1,000 mg PO BID PRN PRN Reason: PAIN Last Admin: 01/13/17 08:51 Dose: 1,000 mg Olanzapine (Zyprexa * Tab Odt) 15 mg PO BEDTIME [facility] Last Admin: 01/12/17 20:52 Dose: 15 mg Omeprazole (Prilosec Cap*) 20 mg PO 0600 [facility] Last Admin: 01/13/17 05:40 Dose: 20 mg Promethazine HCl (Phenergan Tab*) 25 mg PO Q8H PRN PRN Reason: NAUSEA Last Admin: 01/03/17 20:45 Dose: 25 mg Discharge Planning: Prescriptions provided for discharge [x] Yes antihypertensives and Zyprexa Follow up care details as per social work arrangements. Patient response to discharge plan: [x] eager for discharge [] agreeable with discharge plan [] ambivalent about discharge [] disagrees with discharge today
== END 2017-01-13 13:40 | disposition home or self-care (01) | DRG 885 ==
LOC: ED 15:05 → BSU 12-31 16:40
PROVIDERS: ADMIT Psychiatry & Neurology Psychiatry; ATTEND Psychiatry & Neurology Psychiatry
PROC: GZHZZZZ Group Psychotherapy (ICD-10-PCS; principal; 2017-01-06)
PROC: GZ58ZZZ Individual Psychotherapy, Cognitive-Behavioral (ICD-10-PCS; 2017-01-06)
DX: F29 Unspecified psychosis not due to a substance or known physiological condition (principal); M41.9 Scoliosis, unspecified; I10 Essential (primary) hypertension; R33.9 Retention of urine, unspecified; F43.10 Post-traumatic stress disorder, unspecified; F42.9 Obsessive-compulsive disorder, unspecified; M19.90 Unspecified osteoarthritis, unspecified site; E78.5 Hyperlipidemia, unspecified; J45.909 Unspecified asthma, uncomplicated; M81.0 Age-related osteoporosis without current pathological fracture; F41.9 Anxiety disorder, unspecified; F17.210 Nicotine dependence, cigarettes, uncomplicated; M54.9 Dorsalgia, unspecified; G89.29 Other chronic pain; E66.9 Obesity, unspecified; F32.89 Other specified depressive episodes; F60.9 Personality disorder, unspecified; Z59.0 Homelessness; Z82.49 Family history of ischemic heart disease and other diseases of the circulatory system; Z88.6 Allergy status to analgesic agent; Z68.27 Body mass index [BMI] 27.0-27.9, adult; Z91.030 Bee allergy status; Z83.3 Family history of diabetes mellitus; Z81.8 Family history of other mental and behavioral disorders
CPT/HCPCS: 36415; 80048; 80053; 80061; 80307; 80320; 80329; 81003; 81015; 84439; 84443; 84481; 85025; 87086; 90853; 99222; 99231; 99232; 99238; A9270-GY; G0480